=== PATIENT | female | born 1945 | race Caucasian/White ===

== ENCOUNTER 2020-12-08 20:59 | Inpatient (IN) | payer OTHER ==
[~2020-12-08] VITALS: Ht 167.6 cm; Wt 75.8 kg
--- NOTE | ~2020-12-08 | EMS ---
Formerly [facility] [address] [place] [address] EMS Patient Care Report Name: ADONAY HERNANDEZ Room #: 170-6 ADM IN M.R.#: [id number] Admission: 12/08/20 Attend Phys: Lee Carranza MD Discharge: Date of : 41 Report #: [id number] THIS REPORT FOR: //name// Report Transmitted: 12/09/2020 07:27 EMS Care Summary [place], [place]/[facility] Incident [id number] @ 12/08/2020 20:27 Incident Location [address] [place] [address] Patient ADONAY HERNANDEZ Female, 75 Years 1945 Patient Address [address] [place] [address] Patient History Diabetes,Hypertension (HTN), Chief Complaint R side weakness Disposition Transported [place] Dis[facility] Reason Falls Transported To [facility] Narrative family was unable to reach pt and found her lying on floor with grossly slurred speech, when they got to her house. Last known normal was yesterday at 1500. pt found lying on R side on floor, carpet soaked in urine. pt R eye bruised and swollen shut, grossly slurred speech and R side is flaccid. pt states she fell "this morning". she is mildly confused. she is unsure why she fell and does not know about LOC. pt is laboring to breathe and LS are "wet". she has recently reported to family that she has been having increased SOB over the last wk and was concerned she had Covid, even though she is vaccinated. pt Formerly [facility] [address] [place] [address] EMS Patient Care Report Name: ADONAY HERNANDEZ Room #: 170-6 ADM IN M.R.#: [id number] Admission: 12/08/20 Attend Phys: Lee Carranza MD Discharge: Date of : 41 Report #: [id number] family req eval at [facility], [facility]. pt to otf frog catcher and cot, tx as listed in flow chart. transport emergency. pt has slight increase in movement on R arm, on arrival. now only gross motor movement on R side. increased 02 sat but breathing continues to be labored. no other changes Initial Vitals @20:34P: 140,R: 30,BP: 156/86,Pain: 0/10,GCS: 14,Temp: 98.3F,Glucose: 270,SpO2: 83,Revised Trauma: 11, @20:49P: 145,R: 30,BP: 176/92,Pain: 0/10,GCS: 14,SpO2: 92,Revised Trauma: 11, Assessments @20:32MENTAL:Confused,Place Oriented,Person Oriented,Event Oriented,SKIN:No Abnormalities,HEENT:Head/Face: Swelling,Head/Face: Facial Droop,LUNG SOUNDS:ABDOMEN:PELVIS//GI:Incontinence,EXTREMITIES:PULSE:Radial: 2+ Normal,NEURO:Other,Slurred Speech,Facial Droop,Weakness Right-Sided,@20:52 Impression Stroke Procedures @20:32ALS AssessmentResponse: Unchanged@20:36StretcherResponse: Unchanged@20:413-Lead ECGResponse: Unchanged@20:45Saline Lock 10cc (20 ga) Site: Hand-LeftResponse: UnchangedSucceeded@20:36Oxygen FlowRate: 6 Device: Nasal Cannula (NC) Response: ImprovedSucceeded Timeline 20:24,Call Received 20:24,Dispatch Notified 20:27,Dispatched 20:27,En Route 20:30,On Scene 20:31,At Patient 20:32,ALS Assessment,Response: Unchanged 20:34,BP: 156/86 M,PULSE: 140,RR: 30 R,SPO2: 83 Ox,ETCO2: ,B,PAIN: 0,GCS: 14, 20:36,Stretcher,Response: Unchanged 20:36,Oxygen FlowRate: 6 Device: Nasal Cannula (NC) Response: ImprovedSucceeded, 20:41,3-Lead ECG,Response: Unchanged 20:45,Saline Lock 10cc 20 ga Site: Hand-Left,Response: UnchangedSucceeded, 20:47,Depart Scene 20:49,BP: 176/92 M,PULSE: 145,RR: 30 R,SPO2: 92 Ox,ETCO2: ,BG: ,PAIN: 0,GCS: 14, 20:56,At Destination 21:27,Call Closed Disclaimer [address] [address] EMS Patient Care Report Name: ADONAY HERNANDEZ Room #: 170-6 ADM IN .R.#: [id number] Admission: 12/08/20 Attend Phys: Lee Carranza MD Discharge: Date of : 41 Report #: [id number] v1.1 Copyright 2020 [employer] This EMS Care Summary contains data elements from the applicable legal record (which may be displayed differently). It is designed to provide pertinent information for the following purposes: continuity of care, clinical quality, and state data reporting. The complete legal record is available to ED staff and administrators of the receiving hospital in [facility]'s Patient Tracker. All data is provided "as is."
[2020-12-08 21:00] VITALS: BP 190/92
--- NOTE | 2020-12-08 21:00 | NUR ---
REFER TO PT TRAUMA PACKET FOR ADDTL DETAILS.
[2020-12-08 21:18] LABS: ABSOLUTE NEUTROPHILS 11.2 thou/uL (1.4-8.2); BASOPHILS 0.3 % (0.0-2.0); HEMATOCRIT 32.3 % (37.0-47.0); HEMOGLOBIN 10.4 gm/dL (12.0-15.0); MCH 26.2 pg (26.0-34.0); MCHC 32.1 g/dL (28.0-37.0); MCV 81.7 fL (80.0-100.0); MONOCYTES 6.3 % (1.0-8.0); PLATELET COUNT 362 thou/uL (150-400); POLYS 89.4 % (36.0-66.0); RBC 3.95 mil/uL (4.20-5.00); RDW 18.7 % (10.5-14.5); WBC 12.5 thou/uL (4.0-11.0)
[2020-12-08 21:23] LABS: CALCIUM 8.5 mg/dL (8.5-10.1); CREATININE 0.9 mg/dL (0.6-1.0); POTASSIUM 3.4 mmol/L (3.5-5.1)
[2020-12-08 21:28] LABS: INR 1.17; PROTIME 12.7 Seconds (10.5-12.1)
[2020-12-08 21:34] LABS: ALBUMIN 3.3 g/dL (3.4-5.0); TOTAL PROTEIN 6.8 g/dL (6.4-8.2)
[2020-12-08 21:45] LABS: TROPONIN-I 0.77 ng/mL (<0.06)
[2020-12-08 21:52] LABS: URINE BILIRUBIN NEGATIVE (Negative); URINE BLOOD 1+ (Negative); URINE CLARITY SL CLOUDY; URINE COLOR YELLOW; URINE GLUCOSE-RANDOM* NEGATIVE (Negative); URINE KETONES 2+ (Negative); URINE LEUKOCYTES-REFLEX NEGATIVE (Negative); URINE NITRITE-REFLEX NEGATIVE (Negative); URINE PROTEIN (DIPSTICK) 1+ (Negative); URINE SPECIFIC GRAVITY >= 1.030 (1.005-1.035)
[2020-12-08 22:04] LABS: BACTERIA-REFLEX 1-9 Few /HPF (None Seen); CELLULAR CASTS 0-3 Few /LPF (None Seen); CRYSTALS None Seen /LPF (None Seen); HYALINE CASTS 4-10 Moderate /LPF (None Seen); MUCUS 0-3 Light strn/LPF (None Seen); SQUAMOUS 0-3 Few /LPF (0-3); URINE RBC 3-10 Few /HPF (NONE SEEN); URINE WBC-REFLEX 0-5 Rare /HPF (0-5)
--- NOTE | 2020-12-08 22:54 | NUR ---
[facility] AT BEDSIDE, TALKING WITH DR ANGEL
[2020-12-08] MEDS ORDERED: METFORMIN HCL500 M3 PO (23:40)
[2020-12-08] MEDS ORDERED: ULTRAM50 MG PO (23:44)
[2020-12-08] MEDS ORDERED: FUROSEMIDE 40 M40 MG PO (23:44)
[2020-12-08] MEDS ORDERED: MELOXICAM7.5 MG PO (23:46)
[2020-12-08] MEDS ORDERED: NORVASC5 M1 PO (23:46)
[2020-12-08] MEDS ORDERED: LISINOPRIL10 MG PO (23:46)
[2020-12-08] MEDS ORDERED: FLOVENT HFA12 G1 (23:47)
[2020-12-09 05:51] LABS: HEMATOCRIT 30.7 % (37.0-47.0); MCH 26.5 pg (26.0-34.0); MCHC 32.5 g/dL (28.0-37.0); MCV 81.7 fL (80.0-100.0); RBC 3.76 mil/uL (4.20-5.00); RDW 18.6 % (10.5-14.5); WBC 13.6 thou/uL (4.0-11.0)
[2020-12-09 05:58] LABS: CALCIUM 8.5 mg/dL (8.5-10.1); CREATININE 0.8 mg/dL (0.6-1.0); POTASSIUM 3.2 mmol/L (3.5-5.1)
[2020-12-09 06:08] LABS: TROPONIN-I 3.89 ng/mL (<0.06)
--- NOTE | 2020-12-09 09:25 | 2DMMODE ---
[facility] [place] [address] [place] [address] 2 D/M-MODE ECHOCARDIOGRAM Name: ADONAY HERNANDEZ Room #: 170-6 ADM IN .R.#: [id number] Admission: 12/08/20 Attend Phys: Lee Carranza MD Discharge: Date of : 41 Report #: [id number] THIS REPORT FOR: cc: [facility] - Clinic physician unknown [facility] - Clinic physician unknown Oscar Lovett MD [facility] ~ APPROVED REPORT Study performed: 12/09/2020 08:30:47 EXAM: Comprehensive 2D, Doppler, and color-flow Echocardiogram Patient Location: ER Status: routine BSA: 1.88 HR: 98 bpm BP: 167/79 mmHg Other Information Study Quality: Adequate Technically limited study due to on BiPAP flat on back. Indications Afib, elevated troponin, CHF. Hx: DM, HTN, HLP. 2D Dimensions RVDd: 34.00 mm IVSd: 12.00 (7-11mm) LVOT Diam: 21.00 (18-24mm) LVDd: 48.00 mm PWd: 11.00 (7-11mm) LVDs: 44.00 (25-40mm) Left Atrium: 45.00 (27-40mm) Aortic Root: 34.00 mm Volumes Left Atrial Volume (Systole) Single Plane 4CH: 51.04 mL Single Plane 2CH: 63.54 mL LA ESV Index: 32.00 mL/m2 Aortic Valve AoV Peak Adriel.: 1.36 m/s AO Peak Gr.: 7.42 mmHg LVOT Max P.70 mmHg [facility] [address] [place] [place] [address] 2 D/M-MODE ECHOCARDIOGRAM Name: ADONAY HERNANDEZ Room #: 170-6 ADM IN .R.#: [id number] Admission: 12/08/20 Attend Phys: Lee Carranza MD Discharge: Date of : 41 Report #: [id number] LVOT Max V: 0.82 m/s CHANDLER Vmax: 2.12 cm2 Mitral Valve E/A Ratio: 2.3 MV Decel. Time: 134.08 ms MV E Max Adriel.: 1.13 m/s MV A Adriel.: 0.50 m/s MV PHT: 38.88 ms IVRT: 62.28 ms Tricuspid Valve TR Peak Adriel.: 3.29 m/s RAP Estimate: 10.00 mmHg TR Peak Gr.: 43.39 mmHg PA Pressure: 53.00 mmHg Left Ventricle The left ventricle is normal size. Mild basal septal hypertrophy is present. Left ventricular systolic function is moderately decreased. LVEF is 40%. Severe diastolic dysfunction is present (restrictive filling). Right Ventricle The right ventricle is normal size. The right ventricular systolic function is normal. Atria Left atrium is mildly dilated. The right atrium size is normal. Aortic Valve The aortic valve is not well visualized. Trace aortic regurgitation. There is no aortic valvular stenosis. Mitral Valve The mitral valve is normal in structure. Mild mitral annular calcification. Moderate mitral regurgitation. No evidence of mitral valve stenosis. Tricuspid Valve The tricuspid valve is normal in structure. Mild tricuspid regurgitation. Estimated PAP is 50-55mmHg. Pulmonic Valve Pulmonic valve is not well visualized. [facility] [address] [place] [address] 2 D/M-MODE ECHOCARDIOGRAM Name: ADONAY HERNANDEZ Room #: 170-6 ADM IN [facility].#: [id number] Admission: 12/08/20 Attend Phys: Lee Carranza MD Discharge: Date of : 41 Report #: [id number] Great Vessels The aortic root is normal in size. IVC is borderline dilated and collapses <50% with inspiration. Pericardium There is no pericardial effusion. Right pleural effusion. <Conclusion> Normal left ventricular size with a mild basal hypertrophy Ejection fraction 40% with moderate inferior wall hypokineses Normal right ventricular size/function Left atrium mildly dilated Color-flow Doppler study was performed of the aortic/mitral/tricuspid/pulmonary valve Mild mitral annular calcification Moderate/central mitral valve insufficiency Mild tricuspid valve insufficiency Pulmonary systolic pressure estimated 55 mmHg No pericardial effusion Normal aortic root size. <ELECTRONICALLY SIGNED> By: Oscar Lovett MD, [facility] 12/09/20924 4 4 Oscar Lovett MD, FACC /INF
[2020-12-09 15:42] LABS: BE(vivo) 2.9 mmol/L (-2 to +3); HCO3 24.8 mmol/L (22.0-26.0); PCO2 28.8 mmHg (35.0-45.0); PO2 53.3 mmHg (80.0-100.0); pH 7.553 (7.360-7.450)
[2020-12-09 22:59] VITALS: BP 139/56
[2020-12-09 23:11] VITALS: BP 139/56
[2020-12-09 23:46] VITALS: BP 141/65
[2020-12-10] VITALS (27 sets, daily range): BP systolic 132–169; BP diastolic 50–72
[2020-12-10 05:04] LABS: CHOLESTEROL 153 mg/dL (<200); HDL CHOLESTEROL 38 mg/dL (>40); LDL CHOLESTEROL 92 mg/dL (<100); TRIGLYCERIDE 117 mg/dL (<150); VLDL 23 mg/dL (<40)
[2020-12-10 05:06] LABS: SERUM ASSESSMENT Clear
--- NOTE | 2020-12-10 07:39 | NUR ---
Patient here from ER at 2350. Patient on Bipap, drowsy. Placed on full ICU monitoring. Pt did wake and was pulling off bipap stating she did not want to wear it anymore. Patient placed on 15L HF NC. Pt. had adequate oxygenation on this for most of the night. This am patient started to desat, encouraged coughing and deep breathing but O2 sats continued to drop into the low 80's. Patient placed back on the Bipap 04/17 rate 12 80% Patient was compiant with this. Heart rate and rhythm stable afib in the 70-90's. Cardizem at 10ng/hr. Blood pressures stable. Marginal U/O from gibbs. Did not speak with family. See documentation on interventions for assessment details.
--- NOTE | 2020-12-10 08:45 | EKG ---
[address] [place] [address] ELECTROCARDIOGRAM REPORT Name: ADONAY HERNANDEZ Room #: 242-P ADM IN M.R.#: [id number] Admission: 12/08/20 Attend Phys: Lee Carranza MD Discharge: Date of : 41 Report #: [id number] [facility] ED Test Date: 2020-12-08 Test Time: 21:02:57 Pat Name: ADONAY HERNANDEZ Department: Room: 242 Gender: F Closing Specialist: MARGARITA : 1945 Requested By: Lee Carranza Order Number: [id number] MD: Oscar Lovett Measurements Intervals [place] Rate: 148 P: 236 ME: 82 QRS: -22 QRSD: 111 T: 101 QT: 312 QTc: 490 Interpretive Statements AFIB Ventricular premature complex Borderline left axis deviation Probable anteroseptal infarct, old Repolarization abnormality, prob rate related No previous ECG available for comparison Electronically Signed On 12-10-2020 8:44:52 CDT by Oscar Lovett [email or web address] <ELECTRONICALLY SIGNED> By: Oscar Lovett MD, [facility] 12/10/2044 01 01 Oscar Lovett MD, FACC /EPI
--- NOTE | 2020-12-10 17:26 | NUR ---
ASSUMED CARE OF PATIENT AT 0600. PATIENT WAS ON BIPAP AT THE BEGINNING OF THE SHIFT DUE TO DESATURATIONS. AT 1125 PATIENT BECAME RESTLESS WITH THE BIPAP IN PLACE AND I CHANGED TO A HFNC AT 14LPM. PATIENT TOLERATED HFNC WELL AND MAINTAINED AN ACCEPTABLE SATURATION.
--- NOTE | 2020-12-10 18:32 | NUR ---
PT PASSED BEDISDE SWALLOW EVAL PER SPEECH AND IS ON A MECHANICAL SOFT DIET. PT HUNGRY AND TAKING IN GOOD PO. PT HAD REPEAT HEAD AND SPINE CT THIS EVENING PER NEUROLOGY. PT ABLE TO STAY OFF BIPAP AND ON 15L HIFLO. REMAINS IN CONTROLLED AFIB OR DILTIAZEM GTT. WILL CONTINUE TO ASSESS.
--- NOTE | 2020-12-10 19:03 | NUR ---
BEDSIDE REPORT GIVEN TO CHASE BOOKER.
[2020-12-11] VITALS (22 sets, daily range): BP systolic 118–164; BP diastolic 51–88
[2020-12-11 05:51] LABS: ABSOLUTE NEUTROPHILS 10.7 thou/uL (1.4-8.2); BASOPHILS 0.4 % (0.0-2.0); HEMATOCRIT 29.7 % (37.0-47.0); HEMOGLOBIN 9.6 gm/dL (12.0-15.0); LYMPHOCYTES 5.3 % (24.0-44.0); MCH 26.4 pg (26.0-34.0); MCHC 32.3 g/dL (28.0-37.0); MCV 81.8 fL (80.0-100.0); MONOCYTES 8.6 % (1.0-8.0); PLATELET COUNT 336 thou/uL (150-400); POLYS 85.7 % (36.0-66.0); RBC 3.63 mil/uL (4.20-5.00); RDW 18.5 % (10.5-14.5); WBC 12.5 thou/uL (4.0-11.0)
[2020-12-11 05:56] LABS: CALCIUM 8.3 mg/dL (8.5-10.1); CREATININE 0.9 mg/dL (0.6-1.0)
[2020-12-11 05:58] LABS: POTASSIUM 2.9 mmol/L (3.5-5.1)
--- NOTE | 2020-12-11 16:00 | NUR ---
Patient has been on Bipap most of the day. Was an Aervo for 1.5 hours during breakfast this morning but did not tolerate it, as she got SOA, desaturated and tachypnic. Tolerating bipap well. Son Mic updated on patient's status over the phone. Curt, other son, was here and updated in person.
--- NOTE | 2020-12-11 17:20 | NUR ---
ASSUMED CARE OF PATIENT 0600. PATIENT HAD BEEN PLACED BACK ON BIPAP BY NURSING AROUND 0645 DUE TO SOA. AT 0950 WE ATTEMPTED HHFNC AT 50LPM AND 97%, THE PATIENT TOLERATED FOR ABOUT AN HOUR AND AT 1100 WE PLACED THE PATIENT BACK ON BIPAP 12/6 RATE 12 65%. SHE REMAINED ON BIPAP THE DURATION OF THE SHIFT. SHE SLEPT AND WAS COMFORTABLE. MEPELEX WAS PLACED ON THE BRIDGE OF THE NOSE TO PREVENT BREAKDOWN AND DISCOMFORT.
[2020-12-12] VITALS (30 sets, daily range): BP systolic 107–157; BP diastolic 52–127
[2020-12-12 06:00] LABS: CALCIUM 8.6 mg/dL (8.5-10.1); CREATININE 1.1 mg/dL (0.6-1.0)
[2020-12-12 06:36] LABS: HEMATOCRIT 30.2 % (37.0-47.0); HEMOGLOBIN 9.6 gm/dL (12.0-15.0); MCH 26.3 pg (26.0-34.0); MCHC 31.6 g/dL (28.0-37.0); MCV 83.3 fL (80.0-100.0); RBC 3.63 mil/uL (4.20-5.00); RDW 19.6 % (10.5-14.5); WBC 11.3 thou/uL (4.0-11.0)
--- NOTE | 2020-12-12 09:47 | NUR ---
WOUND CONSULT; THIS PATIENT IS IN ICU WITH BREATHING DIFFICULTIES. THE HEAD OF BED IS GREATER THAN 30 DEGREES. THERE IS A RIGHT LATERAL MALLEOLOUS PRESSURE INJURY. LOOKS LIKE THE PATIENT HAS HAD THIS INJURY FOR SOME TIME. NO S/S OF INFECTION. RECCOMMENDATIONS; -APPLY XEROFORM, BORDER FOAM DAILY/PRN -TURN PATIENT Q2H -HOB LESS THAN 30 DEGREES RN PRESENT
--- NOTE | 2020-12-12 10:17 | NUR ---
Nutrition: Pt admitted with Left CVA, respiratory failure and seen due to consult related to poor intake. Pt with high 02 requirements which affects intake however pt is still tolerating po. Good appetite reported prior to admit and no weight loss. Requires altered diet per ST for moderate dysphagia. Pt receives both ensure pudding/magic cup on trays. Ate 100% pudding this am and agrees to try magic cup. Low nutrition risk at this time with interventions in place.
--- NOTE | 2020-12-12 11:57 | NUR ---
75-year-old female with a history of diabetes type 2 and hypertension who presents to the ED from home s/p fall. HPI obtained from chart review. Pt's daughter found the pt on the floor this evening. Per EMS noted as SOA. Per ED assessment no record of vaccination and testing negative while in the ED. 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 A-fib with RVE and hypoxemia. RT team continues to work with patient on weaning and at this time remains on bipap. On 12-10-20 patient passed swallow eval at bedside and is on a mechanical soft diet. Patient listed son Curt Bailon at [phone]. Spoke with Curt introduced role of CM. Son reports patient lives alone and was vaccinated this year and has not had any need for home health or skilled in the past. Explained as the patient's plan of care from the MD's gets closer to discharge; CM will follow with both the patient and him for discharge planning needs.
--- NOTE | 2020-12-12 12:30 | EKG ---
[address] [address] ELECTROCARDIOGRAM REPORT Name: ADONAY HERNANDEZ Room #: 242-P ADM IN M.R.#: [id number] Admission: 12/08/20 Attend Phys: Lee Carranza MD Discharge: Date of : 41 Report #: [id number] [facility] Test Date: 2020-12-12 Test Time: 12:03:23 Pat Name: ADONAY HERNANDEZ Department: Room: 242 P Gender: F Electrical Test Technician: DELFINO : 1945 Requested By: Lee Carranza Order Number: [id number] MD: Oscar Lovett Measurements Intervals [place] Rate: 60 P: -18 SC: 118 QRS: -25 QRSD: 121 T: -60 QT: 473 QTc: 473 Interpretive Statements Sinus rhythm Borderline short SC interval Nonspecific intraventricular conduction delay Nonspecific T abnormalities, inferior leads Compared to ECG 12/08/2020 21:02:57 Intraventricular conduction delay now present T-wave abnormality now present Atrial fibrillation no longer present Ventricular premature complex(es) no longer present Myocardial infarct finding no longer present Early repolarization no longer present Electronically Signed On 12-12-2020 12:30:31 CDT by Oscar Lovett [email or web address] <ELECTRONICALLY SIGNED> By: Oscar Lovett MD, FACC 12/12/20 1230 1203 1203 Oscar Lovett MD, [facility] /EPI
--- NOTE | 2020-12-12 18:51 | NUR ---
Patient sent to MRI this afternoon. Tolerated well. However, once we returned to her room, pt more tachypic. placed on Bipap. Patient was anxious with the mask on and Dr. Carranza notified. New order for PRN Ativan received. patient currently resting. Tolerating Bipap at 75% FiO2 at this time.
[2020-12-13] VITALS (29 sets, daily range): BP systolic 100–166; BP diastolic 38–81
[2020-12-13 04:32] LABS: HEMATOCRIT 32.5 % (37.0-47.0); HEMOGLOBIN 9.8 gm/dL (12.0-15.0); MCHC 30.1 g/dL (28.0-37.0); MCV 86.5 fL (80.0-100.0); RBC 3.75 mil/uL (4.20-5.00); RDW 20.1 % (10.5-14.5)
[2020-12-13 05:11] LABS: CALCIUM 8.4 mg/dL (8.5-10.1); CREATININE 1.2 mg/dL (0.6-1.0); POTASSIUM 4.6 mmol/L (3.5-5.1)
--- NOTE | 2020-12-13 07:49 | EKG ---
[address] [address] ELECTROCARDIOGRAM REPORT Name: ADONAY HERNANDEZ Room #: 242-P ADM IN M.R.#: [id number] Admission: 12/08/20 Attend Phys: Lee Carranza MD Discharge: Date of : 41 Report #: [id number] [facility] Test Date: 2020-12-13 Test Time: 07:34:53 Pat Name: ADONAY HERNANDEZ Department: Room: 242 P Gender: F Fund Raiser: DELFINO : 1945 Requested By: Lee Carranza Order Number: [id number] MD: Oscar Lovett Measurements Intervals [place] Rate: 103 P: RI: QRS: -30 QRSD: 102 T: 73 QT: 346 QTc: 453 Interpretive Statements Atrial fibrillation Ventricular premature complex Left axis deviation Anteroseptal infarct, age indeterminate Borderline repolarization abnormality Compared to ECG 12/12/2020 12:03:23 Ventricular premature complex(es) now present Left-axis deviation now present Myocardial infarct finding now present Sinus rhythm no longer present Intraventricular conduction delay no longer present T-wave abnormality no longer present Electronically Signed On 12-13-2020 7:49:41 CDT by Oscar Lovett [email or web address] <ELECTRONICALLY SIGNED> By: Oscar Lovett MD, FACC 12/13/20 0749 3 Oscar Lovett MD, [facility] /EPI
--- NOTE | 2020-12-13 08:15 | NUR ---
0730- Patient c/o chest pain to RT. 0733- EKG order placed. Patient denies chest pain to RN, is c/o generalized pain. on Aervo, 100% FiO2/55L, with some SOA that is not new. A.fib noted to monitor. Dr. Carranza notified, PRN Morphine order received. 0750- Kaye CLIENT REPORTING ASSOCIATE here to assess patient. Denies chest pain to her as well. New orders received.
--- NOTE | 2020-12-13 08:25 | NUR ---
Nightshift RN reported patient was choking overnight with meds. Required NT suctioning. Patient kept NPO. Chest x-ray done this morning. Speech therapy here to eval patient. Agrees to keep patient NPO with good oral care at this time.
--- NOTE | 2020-12-13 11:36 | NUR ---
Fax sent to [facility] at [phone] for AFO brace to right lower extremity.
--- NOTE | 2020-12-13 11:55 | NUR ---
Son, Curt here to visit with patient. Dr. Carranza spoke to patient's son re: patient status and MRI results. Questions answered and family aware of plan of care.
[2020-12-14] VITALS (25 sets, daily range): BP systolic 109–144; BP diastolic 42–86
[2020-12-14 06:23] LABS: HEMATOCRIT 27.3 % (37.0-47.0); HEMOGLOBIN 8.6 gm/dL (12.0-15.0); MCH 26.5 pg (26.0-34.0); MCHC 31.6 g/dL (28.0-37.0); MCV 83.8 fL (80.0-100.0); RBC 3.25 mil/uL (4.20-5.00); RDW 19.7 % (10.5-14.5); WBC 11.5 thou/uL (4.0-11.0)
[2020-12-14 06:38] LABS: CALCIUM 8.3 mg/dL (8.5-10.1); CREATININE 1.2 mg/dL (0.6-1.0); POTASSIUM 3.4 mmol/L (3.5-5.1)
[2020-12-14 06:41] LABS: ALBUMIN 2.1 g/dL (3.4-5.0); CALCIUM 8.3 mg/dL (8.5-10.1); CREATININE 1.2 mg/dL (0.6-1.0); PHOSPHORUS 2.7 mg/dL (2.5-4.9); POTASSIUM 3.4 mmol/L (3.5-5.1)
--- NOTE | 2020-12-14 09:58 | NUR ---
WOUND CARE F/U; THE RIGHT LATERAL MALLEOLOUS IS MUCH IMPROVED USING XEROFORM GAUZE AND A BORDER FOAM M/W/F PRN. NO S/S OF INFECTION. THE PATIENTS SON IS HERE TODAY AND I DISCUSSED HER WOUND HEALING PROGRESS. NO ODOR. RECOMMENDATIONS; -CONTINUE CURRENT TREATMENT. -CONTINUE TO FLOAT HEELS. DISCUSSED WITH
--- NOTE | 2020-12-14 10:25 | NUR ---
ASSUMMED CARE OF PT AT 0700 PT SON AT BEDSIDE AT 0830, UPDATED PER POC
[2020-12-14 11:15] LABS: BE(vivo) -2.8 mmol/L (-2 to +3); PO2 60.8 mmHg (80.0-100.0); pH 7.471 (7.360-7.450); sO2 93.2 % (92.0-98.0)
--- NOTE | 2020-12-14 20:29 | NUR ---
This RN updated mother in law, Emy, regarding patient status and plan of care at 2015.
[2020-12-15] VITALS (22 sets, daily range): BP systolic 92–146; BP diastolic 48–91
[2020-12-15 05:35] LABS: HEMATOCRIT 27.1 % (37.0-47.0); HEMOGLOBIN 8.7 gm/dL (12.0-15.0); MCH 26.5 pg (26.0-34.0); MCHC 31.9 g/dL (28.0-37.0); RBC 3.27 mil/uL (4.20-5.00); RDW 18.8 % (10.5-14.5); WBC 9.5 thou/uL (4.0-11.0)
[2020-12-15 05:50] LABS: CREATININE 1.3 mg/dL (0.6-1.0); POTASSIUM 3.7 mmol/L (3.5-5.1)
--- NOTE | 2020-12-15 12:18 | NUR ---
Cm tried to visit with son at bedside, Dr fabian speaking with son. Cm came back and son had stepped out of the room. Discussed during LOS and unite rounds. Will cont following as needed for dc needs.
--- NOTE | 2020-12-15 19:26 | NUR ---
Upon initial assessment, patient stated to RN "I don't need a nurse you're just supposed to let me !". Plan to go hospice in the near future, explained situation to patient. Patient stated she will absoloutely not wear this bipap tonight. Will continue to monitor.
[2020-12-16] VITALS (12 sets, daily range): BP systolic 117–154; BP diastolic 54–86
--- NOTE | 2020-12-16 08:44 | NUR ---
Chart review. MAURI spoke with korin with [facility]. We have accepted her for hospice house but mojgan/family wants to see house se does over the weekend and he state he was told she could stay over the weekend, so will take saturday, when family ready per korin with [facility]. Will cont following as needed for dc needs.
--- NOTE | 2020-12-16 12:12 | HC ---
[facility] [place] [address] [place] [address] CONSULTATION Name: CYMROJENNIFERADONAY Jennifer Room #: 242-P ADM IN M.R.#: [id number] Admission: 12/08/20 Attend Phys: Lee Carranza MD Discharge: Date of : 41 Report #: [id number] THIS REPORT FOR: cc: [facility] - Clinic physician unknown [facility] - Clinic physician unknown Esvin Denson MD ~ DATE OF SERVICE: 12/09/2020 HISTORY OF PRESENT ILLNESS: This is a 75-year-old female patient who was discussed with the Emergency Room physician and was seen this morning. This patient was found unresponsive with unknown downtime. Neurology consultation was requested because the patient was found to have a stroke on the CT scan. She is in atrial fibrillation and she has a posterior cerebral artery stroke. This is the common site for embolization. The patient came outside the window for TPA. She has a disease of the vertebral artery also. REVIEW OF SYSTEMS: A 14-point review of system was carried out. She was found to be in atrial fibrillation. She did have some weakness noted on the right side. When I saw her, she was on BiPAP and it was difficult to tell about any weakness. She was not complaining of any pain, but was mostly complaining of difficulty with breathing. She could not provide any history. A friend was there, but family was not there. It looks like she suffered from hypoxia and that is the 14-point review of system, I can get in this patient. Past medical history is unavailable in this patient's both from the chart as well as from the record. She has a question of a lung mass. She has a history of diabetes and hypertension. PAST MEDICAL HISTORY: Not available. FAMILY HISTORY: Apparently negative for early age stroke. SOCIAL HISTORY: She has a son and I will try to reach him. PHYSICAL EXAMINATION: The patient's examination indicate the patient is on a BiPAP. She is having a lot of respiratory difficulty when I saw her. Examination was not possible, but she was able to talk. She was able to tell me that her biggest problem is breathing problem. She was not complaining of any headache or any neck pain. I could not do a detailed neuromuscular examination. We will try tomorrow. I tried to do for hemianopsia and I could not tell and it looks like she moved all 4 extremities, but I could not tell anything further. She has atrial fibrillation and she has been treated by Cardiology. IMPRESSION: This patient has a posterior cerebral artery stroke, which is a common location for embolization. She is in atrial fibrillation. She needs to be on anticoagulation. The question is when to start anticoagulation. It is difficult to tell because the patient was found unresponsive. I tried to do an [facility] [address] [place] [address] CONSULTATION Name: ADONAY HERNANDEZ Room #: 242-P [facility] IN ..#: [id number] Admission: 12/08/20 Attend Phys: Lee Carranza MD Discharge: Date of : 41 Report #: [id number] MRI, but they could not do it because the patient is on BiPAP and does not look she is stable to go down for MRI. I will suggest waiting for a total of 3 days and start the patient on anticoagulation then. It looked like the stroke is about 12-24 hour old and we will give today and tomorrow and on Saturday anticoagulation can be started. The patient has numerous other problems and I will defer the further evaluation and management of those problems to hospitalist and any other claims consultant that want to consult and I will confine myself to the evaluation and management of stroke. For that she needs anticoagulation, which Cardiology is going to start and that can be started on Saturday. Please call if there are any further question. <ELECTRONICALLY SIGNED> By: Esvin Denson MD 12/16/20 1212 [id number] Esvin Denson MD /nt
--- NOTE | 2020-12-16 15:21 | NUR ---
PATIENT TAKEN BY TYRA AT 1519. SON, TENZIN, WAS PRESENT DURING THIS TIME.
== END 2020-12-16 15:19 | disposition hospice, home (50) | DRG 64 ==
LOC: ER 20:59 → EROBS 23:46 → ICU 23:46
PROVIDERS: Internal Medicine Pulmonary Disease; Nurse Practitioner Adult Health; Nurse Practitioner Family; Student in an Organized Health Care Education/Training Program; ADMIT Hospitalist; ATTEND Hospitalist
PROC: 5A0935A Assistance with Respiratory Ventilation, Less than 24 Consecutive Hours, High Flow/Velocity Cannula (ICD-10-PCS; principal; 2020-12-09)
PROC: 5A09357 Assistance with Respiratory Ventilation, Less than 24 Consecutive Hours, Continuous Positive Airway Pressure (ICD-10-PCS; principal; 2020-12-09)
PROC: 5A0935A Assistance with Respiratory Ventilation, Less than 24 Consecutive Hours, High Flow/Velocity Cannula (ICD-10-PCS; 2020-12-10)
PROC: 5A09357 Assistance with Respiratory Ventilation, Less than 24 Consecutive Hours, Continuous Positive Airway Pressure (ICD-10-PCS; 2020-12-10)
PROC: 5A09357 Assistance with Respiratory Ventilation, Less than 24 Consecutive Hours, Continuous Positive Airway Pressure (ICD-10-PCS; 2020-12-11)
PROC: 5A0935A Assistance with Respiratory Ventilation, Less than 24 Consecutive Hours, High Flow/Velocity Cannula (ICD-10-PCS; 2020-12-11)
PROC: 5A0935A Assistance with Respiratory Ventilation, Less than 24 Consecutive Hours, High Flow/Velocity Cannula (ICD-10-PCS; 2020-12-12)
PROC: 5A09357 Assistance with Respiratory Ventilation, Less than 24 Consecutive Hours, Continuous Positive Airway Pressure (ICD-10-PCS; 2020-12-12)
PROC: 5A09357 Assistance with Respiratory Ventilation, Less than 24 Consecutive Hours, Continuous Positive Airway Pressure (ICD-10-PCS; 2020-12-13)
PROC: 5A0935A Assistance with Respiratory Ventilation, Less than 24 Consecutive Hours, High Flow/Velocity Cannula (ICD-10-PCS; 2020-12-13)
PROC: 5A0935A Assistance with Respiratory Ventilation, Less than 24 Consecutive Hours, High Flow/Velocity Cannula (ICD-10-PCS; 2020-12-14)
PROC: 5A09357 Assistance with Respiratory Ventilation, Less than 24 Consecutive Hours, Continuous Positive Airway Pressure (ICD-10-PCS; 2020-12-14)
PROC: 5A09357 Assistance with Respiratory Ventilation, Less than 24 Consecutive Hours, Continuous Positive Airway Pressure (ICD-10-PCS; 2020-12-15)
PROC: 5A0935A Assistance with Respiratory Ventilation, Less than 24 Consecutive Hours, High Flow/Velocity Cannula (ICD-10-PCS; 2020-12-15)
PROC: 5A0935A Assistance with Respiratory Ventilation, Less than 24 Consecutive Hours, High Flow/Velocity Cannula (ICD-10-PCS; 2020-12-16)
DX: I63.532 Cerebral infarction due to unspecified occlusion or stenosis of left posterior cerebral artery (principal); I21.A1 Myocardial infarction type 2; J96.21 Acute and chronic respiratory failure with hypoxia; J69.0 Pneumonitis due to inhalation of food and vomit; I50.41 Acute combined systolic (congestive) and diastolic (congestive) heart failure; I48.20 Chronic atrial fibrillation, unspecified; G81.91 Hemiplegia, unspecified affecting right dominant side; E87.0 Hyperosmolality and hypernatremia; I11.0 Hypertensive heart disease with heart failure; R77.8 Other specified abnormalities of plasma proteins; R91.8 Other nonspecific abnormal finding of lung field; Z20.822 Contact with and (suspected) exposure to COVID-19; E11.9 Type 2 diabetes mellitus without complications; E78.00 Pure hypercholesterolemia, unspecified; E87.6 Hypokalemia; I34.0 Nonrheumatic mitral (valve) insufficiency; I27.20 Pulmonary hypertension, unspecified; D64.9 Anemia, unspecified; R13.10 Dysphagia, unspecified; Z79.01 Long term (current) use of anticoagulants; Z79.82 Long term (current) use of aspirin; Z79.899 Other long term (current) drug therapy
CPT/HCPCS: 10078